=== PATIENT | male | born 1955 | race Caucasian/White ===

== ENCOUNTER → 2021-11-16 | Outpatient (CLI) | payer MEDICARE, OTHER | LOC: WOUNDCARE 11:37 | PROVIDERS: ATTEND Nurse Practitioner Family | DX: T81.89XA Other complications of procedures, not elsewhere classified, initial encounter (principal); M27.2 Inflammatory conditions of jaws; L59.8 Other specified disorders of the skin and subcutaneous tissue related to radiation; D64.9 Anemia, unspecified; J44.9 Chronic obstructive pulmonary disease, unspecified; E03.9 Hypothyroidism, unspecified; Z98.890 Other specified postprocedural states; Z87.891 Personal history of nicotine dependence; Y83.8 Other surgical procedures as the cause of abnormal reaction of the patient, or of later complication, without mention of misadventure at the time of the procedure; Y92.238 Other place in hospital as the place of occurrence of the external cause ==

== ENCOUNTER → 2021-11-23 | Outpatient (CLI) | payer MEDICARE, OTHER | LOC: WOUNDCARE 00:51 | PROVIDERS: ATTEND Nurse Practitioner Family | DX: T81.89XD Other complications of procedures, not elsewhere classified, subsequent encounter (principal); M27.2 Inflammatory conditions of jaws; L59.8 Other specified disorders of the skin and subcutaneous tissue related to radiation; D64.9 Anemia, unspecified; J44.9 Chronic obstructive pulmonary disease, unspecified; E03.9 Hypothyroidism, unspecified; Z98.890 Other specified postprocedural states; Z87.891 Personal history of nicotine dependence; Y83.8 Other surgical procedures as the cause of abnormal reaction of the patient, or of later complication, without mention of misadventure at the time of the procedure ==

== ENCOUNTER → 2021-11-30 | Outpatient (CLI) | payer MEDICARE, OTHER | LOC: WOUNDCARE 00:15 | PROVIDERS: ATTEND Nurse Practitioner Family | DX: T81.89XD Other complications of procedures, not elsewhere classified, subsequent encounter (principal); L59.8 Other specified disorders of the skin and subcutaneous tissue related to radiation; M27.2 Inflammatory conditions of jaws; S01.402D Unspecified open wound of left cheek and temporomandibular area, subsequent encounter; D64.9 Anemia, unspecified; J44.9 Chronic obstructive pulmonary disease, unspecified; E03.9 Hypothyroidism, unspecified; Z87.891 Personal history of nicotine dependence; Z85.12 Personal history of malignant neoplasm of trachea; X58.XXXD Exposure to other specified factors, subsequent encounter; Y84.2 Radiological procedure and radiotherapy as the cause of abnormal reaction of the patient, or of later complication, without mention of misadventure at the time of the procedure; Y83.8 Other surgical procedures as the cause of abnormal reaction of the patient, or of later complication, without mention of misadventure at the time of the procedure ==

== ENCOUNTER → 2021-12-01 | Outpatient (CLI) | payer MEDICARE, OTHER | LOC: WOUNDCARE 00:50 | PROVIDERS: ATTEND Internal Medicine | DX: M27.2 Inflammatory conditions of jaws (principal); M87.88 Other osteonecrosis, other site; L59.8 Other specified disorders of the skin and subcutaneous tissue related to radiation; S01.402D Unspecified open wound of left cheek and temporomandibular area, subsequent encounter; D64.9 Anemia, unspecified; J44.9 Chronic obstructive pulmonary disease, unspecified; E03.9 Hypothyroidism, unspecified; Z87.891 Personal history of nicotine dependence; Z85.12 Personal history of malignant neoplasm of trachea; X58.XXXD Exposure to other specified factors, subsequent encounter; Y84.2 Radiological procedure and radiotherapy as the cause of abnormal reaction of the patient, or of later complication, without mention of misadventure at the time of the procedure ==

== ENCOUNTER → 2021-12-02 | Outpatient (CLI) | payer MEDICARE, OTHER | LOC: WOUNDCARE 13:19 | PROVIDERS: ATTEND Nurse Practitioner Family | DX: M27.2 Inflammatory conditions of jaws (principal); M87.88 Other osteonecrosis, other site; L59.8 Other specified disorders of the skin and subcutaneous tissue related to radiation; D64.9 Anemia, unspecified; S01.402D Unspecified open wound of left cheek and temporomandibular area, subsequent encounter; J44.9 Chronic obstructive pulmonary disease, unspecified; E03.9 Hypothyroidism, unspecified; Z87.891 Personal history of nicotine dependence; Z85.12 Personal history of malignant neoplasm of trachea; X58.XXXD Exposure to other specified factors, subsequent encounter; Y84.2 Radiological procedure and radiotherapy as the cause of abnormal reaction of the patient, or of later complication, without mention of misadventure at the time of the procedure ==

== ENCOUNTER → 2021-12-03 | Outpatient (CLI) | payer MEDICARE, OTHER | LOC: WOUNDCARE 02:42 | PROVIDERS: ATTEND Nurse Practitioner Family | DX: M27.2 Inflammatory conditions of jaws (principal); L59.8 Other specified disorders of the skin and subcutaneous tissue related to radiation; S01.402D Unspecified open wound of left cheek and temporomandibular area, subsequent encounter; D64.9 Anemia, unspecified; E03.9 Hypothyroidism, unspecified; J44.9 Chronic obstructive pulmonary disease, unspecified; Z87.891 Personal history of nicotine dependence; Z85.818 Personal history of malignant neoplasm of other sites of lip, oral cavity, and pharynx; X58.XXXD Exposure to other specified factors, subsequent encounter; Y84.2 Radiological procedure and radiotherapy as the cause of abnormal reaction of the patient, or of later complication, without mention of misadventure at the time of the procedure ==

== ENCOUNTER → 2021-12-04 | Outpatient (CLI) | payer MEDICARE, OTHER | LOC: WOUNDCARE 01:36 | PROVIDERS: ATTEND Nurse Practitioner Family | DX: M27.2 Inflammatory conditions of jaws (principal); L59.8 Other specified disorders of the skin and subcutaneous tissue related to radiation; S01.402D Unspecified open wound of left cheek and temporomandibular area, subsequent encounter; D64.9 Anemia, unspecified; E03.9 Hypothyroidism, unspecified; J44.9 Chronic obstructive pulmonary disease, unspecified; Z87.891 Personal history of nicotine dependence; Z85.818 Personal history of malignant neoplasm of other sites of lip, oral cavity, and pharynx; X58.XXXD Exposure to other specified factors, subsequent encounter; Y84.2 Radiological procedure and radiotherapy as the cause of abnormal reaction of the patient, or of later complication, without mention of misadventure at the time of the procedure ==

== ENCOUNTER → 2021-12-07 | Outpatient (CLI) | payer MEDICARE, OTHER | LOC: WOUNDCARE 00:51 | PROVIDERS: ATTEND Nurse Practitioner Family | DX: M27.2 Inflammatory conditions of jaws (principal); L59.8 Other specified disorders of the skin and subcutaneous tissue related to radiation; T81.89XD Other complications of procedures, not elsewhere classified, subsequent encounter; S01.402D Unspecified open wound of left cheek and temporomandibular area, subsequent encounter; D64.9 Anemia, unspecified; E03.9 Hypothyroidism, unspecified; J44.9 Chronic obstructive pulmonary disease, unspecified; Z87.891 Personal history of nicotine dependence; Z85.818 Personal history of malignant neoplasm of other sites of lip, oral cavity, and pharynx; X58.XXXD Exposure to other specified factors, subsequent encounter; Y84.2 Radiological procedure and radiotherapy as the cause of abnormal reaction of the patient, or of later complication, without mention of misadventure at the time of the procedure; Y83.8 Other surgical procedures as the cause of abnormal reaction of the patient, or of later complication, without mention of misadventure at the time of the procedure ==

== ENCOUNTER → 2021-12-09 | Outpatient (CLI) | payer MEDICARE, OTHER | LOC: WOUNDCARE 01:22 | PROVIDERS: ATTEND Nurse Practitioner Family | DX: M27.2 Inflammatory conditions of jaws (principal); L59.8 Other specified disorders of the skin and subcutaneous tissue related to radiation; S01.402D Unspecified open wound of left cheek and temporomandibular area, subsequent encounter; D64.9 Anemia, unspecified; E03.9 Hypothyroidism, unspecified; J44.9 Chronic obstructive pulmonary disease, unspecified; Z87.891 Personal history of nicotine dependence; Z85.818 Personal history of malignant neoplasm of other sites of lip, oral cavity, and pharynx; X58.XXXD Exposure to other specified factors, subsequent encounter; Y84.2 Radiological procedure and radiotherapy as the cause of abnormal reaction of the patient, or of later complication, without mention of misadventure at the time of the procedure ==

== ENCOUNTER → 2022-02-19 | Outpatient (CLI) | payer OTHER | END | disposition home or self-care (01) | LOC: WOUNDCARE 00:37 | PROVIDERS: ATTEND Nurse Practitioner Family | DX: M27.2 Inflammatory conditions of jaws (principal); L59.8 Other specified disorders of the skin and subcutaneous tissue related to radiation; D64.9 Anemia, unspecified; E03.9 Hypothyroidism, unspecified; J44.9 Chronic obstructive pulmonary disease, unspecified; Z87.891 Personal history of nicotine dependence; Z85.818 Personal history of malignant neoplasm of other sites of lip, oral cavity, and pharynx; Y84.2 Radiological procedure and radiotherapy as the cause of abnormal reaction of the patient, or of later complication, without mention of misadventure at the time of the procedure ==

== ENCOUNTER → 2022-02-22 | Outpatient (CLI) | payer OTHER | END | disposition home or self-care (01) | LOC: WOUNDCARE 04:26 | PROVIDERS: ATTEND Student in an Organized Health Care Education/Training Program | DX: M27.2 Inflammatory conditions of jaws (principal); L59.8 Other specified disorders of the skin and subcutaneous tissue related to radiation; E03.9 Hypothyroidism, unspecified; J44.9 Chronic obstructive pulmonary disease, unspecified; Z85.818 Personal history of malignant neoplasm of other sites of lip, oral cavity, and pharynx; Z87.891 Personal history of nicotine dependence; Y84.2 Radiological procedure and radiotherapy as the cause of abnormal reaction of the patient, or of later complication, without mention of misadventure at the time of the procedure ==

== ENCOUNTER → 2022-02-23 | Outpatient (CLI) | payer OTHER | END | disposition home or self-care (01) | LOC: WOUNDCARE 01:33 | PROVIDERS: ATTEND Student in an Organized Health Care Education/Training Program | DX: M27.2 Inflammatory conditions of jaws (principal); L59.8 Other specified disorders of the skin and subcutaneous tissue related to radiation; D64.9 Anemia, unspecified; E03.9 Hypothyroidism, unspecified; J44.9 Chronic obstructive pulmonary disease, unspecified; Z87.891 Personal history of nicotine dependence; Z85.818 Personal history of malignant neoplasm of other sites of lip, oral cavity, and pharynx; Y84.2 Radiological procedure and radiotherapy as the cause of abnormal reaction of the patient, or of later complication, without mention of misadventure at the time of the procedure ==

== ENCOUNTER → 2022-02-24 | Outpatient (CLI) | payer OTHER | END | disposition home or self-care (01) | LOC: WOUNDCARE 01:41 | PROVIDERS: ATTEND Nurse Practitioner Family | DX: M27.2 Inflammatory conditions of jaws (principal); L59.8 Other specified disorders of the skin and subcutaneous tissue related to radiation; E03.9 Hypothyroidism, unspecified; D64.9 Anemia, unspecified; J44.9 Chronic obstructive pulmonary disease, unspecified; Z87.891 Personal history of nicotine dependence; Z85.818 Personal history of malignant neoplasm of other sites of lip, oral cavity, and pharynx; Y84.2 Radiological procedure and radiotherapy as the cause of abnormal reaction of the patient, or of later complication, without mention of misadventure at the time of the procedure ==

== ENCOUNTER → 2022-02-25 | Outpatient (CLI) | payer OTHER | END | disposition home or self-care (01) | LOC: WOUNDCARE 01:51 | PROVIDERS: ATTEND Nurse Practitioner Family | DX: M27.2 Inflammatory conditions of jaws (principal); L59.8 Other specified disorders of the skin and subcutaneous tissue related to radiation; D64.9 Anemia, unspecified; E03.9 Hypothyroidism, unspecified; J44.9 Chronic obstructive pulmonary disease, unspecified; Z87.891 Personal history of nicotine dependence; Z85.818 Personal history of malignant neoplasm of other sites of lip, oral cavity, and pharynx; Y84.2 Radiological procedure and radiotherapy as the cause of abnormal reaction of the patient, or of later complication, without mention of misadventure at the time of the procedure ==

== ENCOUNTER → 2022-02-26 | Outpatient (CLI) | payer OTHER | END | disposition home or self-care (01) | LOC: WOUNDCARE 07:14 | PROVIDERS: ATTEND Nurse Practitioner Family | DX: M27.2 Inflammatory conditions of jaws (principal); M87.88 Other osteonecrosis, other site; L59.8 Other specified disorders of the skin and subcutaneous tissue related to radiation; D64.9 Anemia, unspecified; E03.9 Hypothyroidism, unspecified; J44.9 Chronic obstructive pulmonary disease, unspecified; Z87.891 Personal history of nicotine dependence; Z85.818 Personal history of malignant neoplasm of other sites of lip, oral cavity, and pharynx; Y84.2 Radiological procedure and radiotherapy as the cause of abnormal reaction of the patient, or of later complication, without mention of misadventure at the time of the procedure ==

== ENCOUNTER → 2022-03-01 | Outpatient (CLI) | payer MEDICARE, OTHER | LOC: WOUNDCARE 04:25 | PROVIDERS: ATTEND Nurse Practitioner Family | DX: M27.2 Inflammatory conditions of jaws (principal); M87.88 Other osteonecrosis, other site; L59.8 Other specified disorders of the skin and subcutaneous tissue related to radiation; D64.9 Anemia, unspecified; E03.9 Hypothyroidism, unspecified; J44.9 Chronic obstructive pulmonary disease, unspecified; Z87.891 Personal history of nicotine dependence; Z85.818 Personal history of malignant neoplasm of other sites of lip, oral cavity, and pharynx; Y84.2 Radiological procedure and radiotherapy as the cause of abnormal reaction of the patient, or of later complication, without mention of misadventure at the time of the procedure ==

== ENCOUNTER → 2022-03-02 | Outpatient (CLI) | payer MEDICARE, OTHER | LOC: WOUNDCARE 01:44 | PROVIDERS: ATTEND Nurse Practitioner Family | DX: M27.2 Inflammatory conditions of jaws (principal); M87.88 Other osteonecrosis, other site; L59.8 Other specified disorders of the skin and subcutaneous tissue related to radiation; D64.9 Anemia, unspecified; E03.9 Hypothyroidism, unspecified; J44.9 Chronic obstructive pulmonary disease, unspecified; Z87.891 Personal history of nicotine dependence; Z85.818 Personal history of malignant neoplasm of other sites of lip, oral cavity, and pharynx; Y84.2 Radiological procedure and radiotherapy as the cause of abnormal reaction of the patient, or of later complication, without mention of misadventure at the time of the procedure ==

== ENCOUNTER → 2022-03-03 | Outpatient (CLI) | payer OTHER | LOC: WOUNDCARE 00:55 | PROVIDERS: ATTEND Nurse Practitioner Family | DX: M27.2 Inflammatory conditions of jaws (principal); M87.88 Other osteonecrosis, other site; L59.8 Other specified disorders of the skin and subcutaneous tissue related to radiation; D64.9 Anemia, unspecified; E03.9 Hypothyroidism, unspecified; J44.9 Chronic obstructive pulmonary disease, unspecified; Z87.891 Personal history of nicotine dependence; Z85.818 Personal history of malignant neoplasm of other sites of lip, oral cavity, and pharynx; Y84.2 Radiological procedure and radiotherapy as the cause of abnormal reaction of the patient, or of later complication, without mention of misadventure at the time of the procedure ==

== ENCOUNTER → 2022-03-04 | Outpatient (CLI) | payer OTHER | LOC: WOUNDCARE 02:58 | PROVIDERS: ATTEND Nurse Practitioner Family | DX: M27.2 Inflammatory conditions of jaws (principal); L59.8 Other specified disorders of the skin and subcutaneous tissue related to radiation; D64.9 Anemia, unspecified; E03.9 Hypothyroidism, unspecified; J44.9 Chronic obstructive pulmonary disease, unspecified; Z85.818 Personal history of malignant neoplasm of other sites of lip, oral cavity, and pharynx; Z87.891 Personal history of nicotine dependence; Y84.2 Radiological procedure and radiotherapy as the cause of abnormal reaction of the patient, or of later complication, without mention of misadventure at the time of the procedure ==

== ENCOUNTER → 2022-03-08 | Outpatient (CLI) | payer OTHER | LOC: WOUNDCARE 02:47 | PROVIDERS: ATTEND Internal Medicine | DX: M27.2 Inflammatory conditions of jaws (principal); L59.8 Other specified disorders of the skin and subcutaneous tissue related to radiation; D64.9 Anemia, unspecified; E03.9 Hypothyroidism, unspecified; J44.9 Chronic obstructive pulmonary disease, unspecified; Z87.891 Personal history of nicotine dependence; Z85.818 Personal history of malignant neoplasm of other sites of lip, oral cavity, and pharynx; Y84.8 Other medical procedures as the cause of abnormal reaction of the patient, or of later complication, without mention of misadventure at the time of the procedure ==

== ENCOUNTER → 2022-03-09 | Outpatient (CLI) | payer MEDICARE, OTHER | LOC: WOUNDCARE 03:16 | PROVIDERS: ATTEND Nurse Practitioner Family | DX: M27.2 Inflammatory conditions of jaws (principal); L59.8 Other specified disorders of the skin and subcutaneous tissue related to radiation; D64.9 Anemia, unspecified; E03.9 Hypothyroidism, unspecified; J44.9 Chronic obstructive pulmonary disease, unspecified; Z87.891 Personal history of nicotine dependence; Z85.818 Personal history of malignant neoplasm of other sites of lip, oral cavity, and pharynx; Y84.2 Radiological procedure and radiotherapy as the cause of abnormal reaction of the patient, or of later complication, without mention of misadventure at the time of the procedure ==

== ENCOUNTER → 2022-03-18 | Outpatient (CLI) | payer MEDICARE, OTHER | END | disposition home or self-care (01) | LOC: WOUNDCARE 11:08 | PROVIDERS: ATTEND Nurse Practitioner Family | DX: M27.2 Inflammatory conditions of jaws (principal); L59.8 Other specified disorders of the skin and subcutaneous tissue related to radiation; E03.9 Hypothyroidism, unspecified; D64.9 Anemia, unspecified; J44.9 Chronic obstructive pulmonary disease, unspecified; Z87.891 Personal history of nicotine dependence; Z85.818 Personal history of malignant neoplasm of other sites of lip, oral cavity, and pharynx; Y84.2 Radiological procedure and radiotherapy as the cause of abnormal reaction of the patient, or of later complication, without mention of misadventure at the time of the procedure ==

== ENCOUNTER → 2022-03-19 | Outpatient (CLI) | payer OTHER | END | disposition home or self-care (01) | LOC: WOUNDCARE 01:58 | PROVIDERS: ATTEND Nurse Practitioner Family | DX: M27.2 Inflammatory conditions of jaws (principal); L59.8 Other specified disorders of the skin and subcutaneous tissue related to radiation; D64.9 Anemia, unspecified; J44.9 Chronic obstructive pulmonary disease, unspecified; E03.9 Hypothyroidism, unspecified; Z87.891 Personal history of nicotine dependence; Z85.818 Personal history of malignant neoplasm of other sites of lip, oral cavity, and pharynx; Y84.2 Radiological procedure and radiotherapy as the cause of abnormal reaction of the patient, or of later complication, without mention of misadventure at the time of the procedure ==

== ENCOUNTER → 2022-03-24 | Outpatient (CLI) | payer OTHER | END | disposition home or self-care (01) | LOC: WOUNDCARE 03-23 05:42 | PROVIDERS: ATTEND Nurse Practitioner Family | DX: M27.2 Inflammatory conditions of jaws (principal); L59.8 Other specified disorders of the skin and subcutaneous tissue related to radiation; D64.9 Anemia, unspecified; J44.9 Chronic obstructive pulmonary disease, unspecified; E03.9 Hypothyroidism, unspecified; Z87.891 Personal history of nicotine dependence; Z85.818 Personal history of malignant neoplasm of other sites of lip, oral cavity, and pharynx; Y84.2 Radiological procedure and radiotherapy as the cause of abnormal reaction of the patient, or of later complication, without mention of misadventure at the time of the procedure ==

== ENCOUNTER → 2022-03-25 | Outpatient (CLI) | payer OTHER | END | disposition home or self-care (01) | LOC: WOUNDCARE 01:18 | PROVIDERS: ATTEND Nurse Practitioner Family | DX: M27.2 Inflammatory conditions of jaws (principal); L59.8 Other specified disorders of the skin and subcutaneous tissue related to radiation; D64.9 Anemia, unspecified; J44.9 Chronic obstructive pulmonary disease, unspecified; E03.9 Hypothyroidism, unspecified; Z87.891 Personal history of nicotine dependence; Z85.818 Personal history of malignant neoplasm of other sites of lip, oral cavity, and pharynx; Y83.4 Other reconstructive surgery as the cause of abnormal reaction of the patient, or of later complication, without mention of misadventure at the time of the procedure ==

== ENCOUNTER → 2022-03-26 | Outpatient (CLI) | payer OTHER | END | disposition home or self-care (01) | LOC: WOUNDCARE 01:31 | PROVIDERS: ATTEND Nurse Practitioner Family | DX: M27.2 Inflammatory conditions of jaws (principal); M87.88 Other osteonecrosis, other site; L59.8 Other specified disorders of the skin and subcutaneous tissue related to radiation; D64.9 Anemia, unspecified; J44.9 Chronic obstructive pulmonary disease, unspecified; E03.9 Hypothyroidism, unspecified; Z87.891 Personal history of nicotine dependence; Z85.818 Personal history of malignant neoplasm of other sites of lip, oral cavity, and pharynx; Y84.2 Radiological procedure and radiotherapy as the cause of abnormal reaction of the patient, or of later complication, without mention of misadventure at the time of the procedure ==

== ENCOUNTER → 2022-03-29 | Outpatient (CLI) | payer MEDICARE, OTHER | END | disposition home or self-care (01) | LOC: WOUNDCARE 04:28 | PROVIDERS: ATTEND Internal Medicine | DX: M27.2 Inflammatory conditions of jaws (principal); M87.88 Other osteonecrosis, other site; L59.8 Other specified disorders of the skin and subcutaneous tissue related to radiation; D64.9 Anemia, unspecified; J44.9 Chronic obstructive pulmonary disease, unspecified; E03.9 Hypothyroidism, unspecified; Z87.891 Personal history of nicotine dependence; Z85.818 Personal history of malignant neoplasm of other sites of lip, oral cavity, and pharynx; Y84.2 Radiological procedure and radiotherapy as the cause of abnormal reaction of the patient, or of later complication, without mention of misadventure at the time of the procedure ==

== ENCOUNTER → 2022-03-30 | Outpatient (CLI) | payer MEDICARE, OTHER | END | disposition home or self-care (01) | LOC: WOUNDCARE 01:18 | PROVIDERS: ATTEND Internal Medicine | DX: M27.2 Inflammatory conditions of jaws (principal); M87.88 Other osteonecrosis, other site; L59.8 Other specified disorders of the skin and subcutaneous tissue related to radiation; D64.9 Anemia, unspecified; J44.9 Chronic obstructive pulmonary disease, unspecified; E03.9 Hypothyroidism, unspecified; Z87.891 Personal history of nicotine dependence; Z85.818 Personal history of malignant neoplasm of other sites of lip, oral cavity, and pharynx; Y84.2 Radiological procedure and radiotherapy as the cause of abnormal reaction of the patient, or of later complication, without mention of misadventure at the time of the procedure ==

== ENCOUNTER → 2022-04-02 | Outpatient (CLI) | payer OTHER | END | disposition home or self-care (01) | LOC: WOUNDCARE 11:44 | PROVIDERS: ATTEND Internal Medicine | DX: M27.2 Inflammatory conditions of jaws (principal); L59.8 Other specified disorders of the skin and subcutaneous tissue related to radiation; D64.9 Anemia, unspecified; E03.9 Hypothyroidism, unspecified; J44.9 Chronic obstructive pulmonary disease, unspecified; Z87.891 Personal history of nicotine dependence; Z85.818 Personal history of malignant neoplasm of other sites of lip, oral cavity, and pharynx; Y84.2 Radiological procedure and radiotherapy as the cause of abnormal reaction of the patient, or of later complication, without mention of misadventure at the time of the procedure ==

== ENCOUNTER → 2022-04-05 | Outpatient (CLI) | payer OTHER | END | disposition home or self-care (01) | LOC: WOUNDCARE 04:29 | PROVIDERS: ATTEND Student in an Organized Health Care Education/Training Program | DX: M27.2 Inflammatory conditions of jaws (principal); L59.8 Other specified disorders of the skin and subcutaneous tissue related to radiation; D64.9 Anemia, unspecified; E03.9 Hypothyroidism, unspecified; J44.9 Chronic obstructive pulmonary disease, unspecified; Z87.891 Personal history of nicotine dependence; Z85.818 Personal history of malignant neoplasm of other sites of lip, oral cavity, and pharynx; Y84.2 Radiological procedure and radiotherapy as the cause of abnormal reaction of the patient, or of later complication, without mention of misadventure at the time of the procedure ==